=== PATIENT | male | born 1960 | race Caucasian/White ===

== ENCOUNTER → 2016-10-17 | Outpatient (CLI) | payer BC ==
[~2016-10-17] MED LIST: DOCU-144 PO; HYDR-906 PO; PANT40TA4 PO; PRAV10TA43 PO; ULT50 PO
--- NOTE | 2016-10-17 10:22 | RADRPT ---
PROCEDURE: XR pelvis/left hip. CLINICAL INDICATION: Hip pain TECHNIQUE: AP pelvis/lateral left hip view available for review. 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 There is normal mineralization, architecture and alignment. There is no evidence of loosening of th e prosthesis. No fractures, dislocation or osseous lesions are identified. The joints are unremark able. There are normal soft tissues. IMPRESSION: Bilateral total hip replacements. Otherwise unremarkable examination. RPTAT: HGDB .Jayce De Dios MD, Date Time Electronically viewed and signed by .Jayce De Dios MD, on 10/17/2016 10:22 .B/
== END | disposition home or self-care (01) ==
LOC: HKI 09:35
PROVIDERS: ATTEND Orthopaedic Surgery
DX: Z47.1 Aftercare following joint replacement surgery (principal); M16.12 Unilateral primary osteoarthritis, left hip; Z96.642 Presence of left artificial hip joint
CPT/HCPCS: 73502; G0463

== ENCOUNTER → 2016-11-21 | Outpatient (CLI) | payer BC ==
[~2016-11-21] MED LIST changes: +TRAM50TA2 PO; -ULT50 PO
--- NOTE | 2016-11-21 11:54 | RADRPT ---
PROCEDURE: XR pelvis/left hip. CLINICAL INDICATION: Hip pain TECHNIQUE: AP pelvis/lateral left hip view available for review. COMPARISON: No prior studies are available for comparison. FINDINGS: There are bilateral total hip replacements. There is normal mineralization, architecture and alignment. There is no evidence of loosening of th e prosthesis. No fractures, dislocation or osseous lesions are identified. The joints are unremark able. There is severe lower lumbar degenerative disk disease. There are normal soft tissues. IMPRESSION: Bilateral total hip replacements. Lower lumbar degenerative disk disease Otherwise unremarkable examination. RPTAT: HGDB .Jayce De Dios MD, MD Date Time Electronically viewed and signed by .Jayce De Dios MD, on 11/21/2016 11:53 .B/
== END | disposition home or self-care (01) ==
LOC: HKI 10:03
PROVIDERS: ATTEND Orthopaedic Surgery
DX: Z47.1 Aftercare following joint replacement surgery (principal); Z96.642 Presence of left artificial hip joint
CPT/HCPCS: 73502; G0463

== ENCOUNTER → 2017-02-20 | Outpatient (CLI) | payer BC ==
--- NOTE | 2017-02-20 14:15 | RADRPT ---
PROCEDURE: XR Left Hip and pelvis. CLINICAL INDICATION: Left hip pain. Pelvic pain. Postop. TECHNIQUE: Three views. Frontal pelvis. Frontal and lateral left hip. COMPARISON: 11/21/2016. FINDINGS: There is no fracture or dislocation. The soft tissues are normal. There are bilateral total hip arthroplasties which appears satisfactory . There is no fracture, dislocation, or loosening. There is no lytic or blastic lesion. There are degenerative changes of the lower lumbar spine. IMPRESSION: 1. Satisfactory postoperative appearance of both hips. 2. Degenerative changes of the lower lumbar spine. RPTAT: QQ .Martin Matos MD, MD Date Time Electronically viewed and signed by .Martin Matos MD, on 02/20/2017 14:15 .R/
== END | disposition home or self-care (01) ==
LOC: HKI 09:58
PROVIDERS: ATTEND Orthopaedic Surgery
DX: Z47.1 Aftercare following joint replacement surgery (principal); M25.552 Pain in left hip; Z96.643 Presence of artificial hip joint, bilateral
CPT/HCPCS: 73502; G0463